=== PATIENT | male | born 1980 | race Hispanic/Latino ===

== ENCOUNTER 2020-12-26 11:43 | Emergency (ER) | payer OTHER ==
[2020-12-26 12:34] VITALS: BP 148/83
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
[2020-12-26] MEDS ORDERED: IBUPROFEN 800 MG TAB PO ONE (14:58)
== END 2020-12-26 16:00 | disposition home or self-care (01) ==
LOC: ED 11:43
DX: S19.80XA Other specified injuries of unspecified part of neck, initial encounter (principal); T14.8XXA Other injury of unspecified body region, initial encounter; F17.200 Nicotine dependence, unspecified, uncomplicated; Z79.899 Other long term (current) drug therapy; Z98.890 Other specified postprocedural states; W51.XXXA Accidental striking against or bumped into by another person, initial encounter; Y93.89 Activity, other specified; Y92.89 Other specified places as the place of occurrence of the external cause; Y99.0 Civilian activity done for income or pay
CPT/HCPCS: 70486; 70491; 99283; Q9967